=== PATIENT | male | born 1945 | race Caucasian/White ===

== ENCOUNTER 2018-12-10 08:40 | Inpatient (IN) | payer MEDICARE, BC ==
[~2018-12-10] VITALS: Ht 175.3 cm; Wt 89.8 kg
[~2018-12-10 08:40] MED LIST: ACLI400A2 INH; ALBU8.5H8 INH; ALPR0.5T6 PO; AMLO-150 PO; ASPI81TA45 PO; ATOR-2 PO; ATOR40TA78 PO; AZIT250T89 PO; BUDE10.2 PO; BUDE10.22 INH; BUPIVACAINE/PF 0.5% ONE; BUPIVACAINE/PF-EPI 0.5% 1:200K ONE; CALC667T PO; CINA30TA2 PO; CITA40TA12 PO; CLOP75TA PO; ERGO500017 PO; FLUT1BLS PO; FLUT1POW2 PO; FURO40TA6 PO; GABA300C10 PO; GABA600T7 PO; HYDR-3240 PO; INSU100C SQ-INSULIN; INSU100V35 SC; INSU100V5 SQ; INSU100V8 SQ; INSU200I4 SQ; IPRA3AMP30 NEB; IPRA3AMP30 NPPB; KETO120S2 TP; LEVO125T PO; LEVO25TA4 PO; LEVO500T47 PO; LOSA100T14 PO; METH4TAB PO; METH500T7 PO; METO-93 PO; METO25TA35 PO/NG; ONDA4TAB7 PO; OXYB5TAB7 PO; OXYC1TAB8 PO; TAMS0.4C2 PO; TIOT18CA INH; TRIA15OI TP; VENL150T PO; VENL37.511 PO
[2018-12-10] MEDS ORDERED: SODIUM CHLORIDE 0.9% 1,000 ML IV SCH (09:10)
[2018-12-10] MEDS ORDERED: FENTANYL PF 100 MCG/2ML ONE ×2 (11:26→14:33)
[2018-12-10] MEDS ORDERED: EPHEDRINE 50 MG/ML, 1ML ONE (11:35)
[2018-12-10] MEDS ORDERED: ROCURONIUM 10MG/ML,5ML ONE (11:35)
[2018-12-10] MEDS ORDERED: CEFAZOLIN 1,000 MG ONE (11:35)
[2018-12-10] MEDS ORDERED: PROPOFOL 10 MG/ML, 20ML ONE (11:35)
[2018-12-10] MEDS ORDERED: DEXAMETHASONE 4 MG/ML, 1ML ONE (11:35)
[2018-12-10] MEDS ORDERED: ONDANSETRON 2MG/ML, 2ML ONE (11:35)
[2018-12-10] MEDS ORDERED: SUGAMMADEX 200 MG/2 ML IVPush ONE (11:53)
[2018-12-10] MEDS ORDERED: HYDROmorphone 2 MG/ML, 1ML IVPush PRN (12:30)
[2018-12-10] MEDS ORDERED: PROMETHAZINE 25 MG/ML, 1ML IV PRN (12:30)
[2018-12-10] MEDS ORDERED: HALOPERIDOL 5 MG/ML IV PRN (12:30)
[2018-12-10] MEDS ORDERED: LABETALOL 5MG/ML, 20ML IV PRN (12:30)
[2018-12-10] MEDS ORDERED: OXYcodone 5 MG/5 ML ORAL.SOL UDC PO PRN (12:30)
[2018-12-10] MEDS ORDERED: ALBUTEROL SULFATE 2.5 MG/3 ML NPPB PRN ×2 (12:30→16:30)
[2018-12-10 13:03] LABS: 10MIN %DROP IOPTH 24 %; 5MIN %DROP IOPTH 35 %; IOPTH BASELINE 303 pg/mL; SAMPLE 5 %DROP IOPTH 19 %
[2018-12-10] MEDS ORDERED: hydrALAzine 20 MG/ML, 1ML ONE (14:33)
[2018-12-10] MEDS ORDERED: OXYcodone 5 MG/5 ML ORAL.SOL UDC ONE (14:34)
[2018-12-10] MEDS: hydrALAzine 20 MG/ML, 1ML IV PRN ×2 (14:35→15:05)
[2018-12-10] MEDS: FENTANYL PF 100 MCG/2ML IV PRN ×4 (14:40→15:14)
[2018-12-10] MEDS ORDERED: HYDROcodone/APAP 5/325 TABLET PO PRN (16:30)
[2018-12-10] MEDS ORDERED: hydrALAzine 20 MG/ML, 1ML IV PRN (16:30)
[2018-12-10] MEDS ORDERED: ACETAMINOPHEN 325 MG TABLET PO PRN (16:30)
[2018-12-10] MEDS ORDERED: ACETAMINOPHEN 650 MG SUPP PR PRN (16:30)
[2018-12-10] MEDS ORDERED: ONDANSETRON 2MG/ML, 2ML IV PRN (16:30)
[2018-12-10 19:06] VITALS: BP 163/82
[2018-12-10] MEDS: ALBUTEROL/IPRATROPIUM 2.5MG/0.5MG, 3 ML NPPB SCH (20:00)
[2018-12-10] MEDS ORDERED: AMLODIPINE 5 MG TABLET PO SCH (21:00)
[2018-12-10] MEDS ORDERED: ATORVASTATIN 40 MG TABLET PO SCH (21:00)
[2018-12-10] MEDS: SODIUM CHLORIDE FLUSH 10ML SYR IVF SCH (21:00)
[2018-12-10] MEDS ORDERED: LOSARTAN 50MG TABLET PO SCH (21:00)
[2018-12-10] MEDS: BUDESONIDE 0.5 MG/2 ML INHA NPPB SCH (21:00)
[2018-12-10] MEDS: METHOCARBAMOL 500 MG TABLET PO SCH (21:37)
[2018-12-10] MEDS: INSULIN LISPRO 100 UNITS/ML, PEN SS SQ-INSULIN SCH (21:39)
[2018-12-10] MEDS: CALCIUM ACETATE 667 MG CAPSULE PO SCH (21:42)
[2018-12-10 23:56] VITALS: BP 156/72
[2018-12-11 04:05] VITALS: BP 144/82
[2018-12-11 05:40] LABS: ALBUMIN 3.4 g/dL (3.4-5.0); ANION GAP 7 mmol/L (5-15); CALCIUM 8.5 mg/dL (8.5-10.1); CHLORIDE 99 mmol/L (98-107); CREATININE 8.17 mg/dL (0.7-1.3)
[2018-12-11] MEDS ORDERED: LEVOTHYROXINE 25 MCG TABLET PO SCH (06:00)
[2018-12-11] MEDS: ALBUTEROL/IPRATROPIUM 2.5MG/0.5MG, 3 ML NPPB SCH ×4 (06:21→20:00)
[2018-12-11 06:25] LABS: CALCIUM 8.5 mg/dL (8.5-10.1)
[2018-12-11 06:56] VITALS: BP 148/68
[2018-12-11] MEDS: INSULIN LISPRO 100 UNITS/ML, PEN SS SQ-INSULIN SCH ×3 (08:00→16:00)
[2018-12-11] MEDS: BUDESONIDE 0.5 MG/2 ML INHA NPPB SCH ×2 (09:00→21:00)
[2018-12-11] MEDS: CALCIUM ACETATE 667 MG CAPSULE PO SCH ×2 (09:00→16:00)
[2018-12-11] MEDS: SODIUM CHLORIDE FLUSH 10ML SYR IVF SCH (09:00)
[2018-12-11] MEDS ORDERED: VENLAFAXINE 75 MG CAP ER PO SCH (09:00)
[2018-12-11] MEDS: METHOCARBAMOL 500 MG TABLET PO SCH ×2 (09:00→16:00)
[2018-12-11 13:20] VITALS: BP 134/71
[2018-12-11] MEDS ORDERED: HYDR-3240 PO (17:30)
== END 2018-12-11 17:45 | disposition home or self-care (01) | DRG 625 ==
LOC: OUT 08:40 → 4NOR 15:51 → OUT 15:55 → 4NOR 15:55
PROVIDERS: ADMIT Surgery; ATTEND Surgery
PROC: 0GBL0ZX Excision of Right Superior Parathyroid Gland, Open Approach, Diagnostic (ICD-10-PCS; 2018-12-10)
PROC: 0GBH0ZX Excision of Right Thyroid Gland Lobe, Open Approach, Diagnostic (ICD-10-PCS; 2018-12-10)
PROC: 4A11X4G Monitoring of Peripheral Nervous Electrical Activity, Intraoperative, External Approach (ICD-10-PCS; 2018-12-10)
PROC: 0GTQ0ZZ Resection of Multiple Parathyroid Glands, Open Approach (ICD-10-PCS; principal; 2018-12-10 10:45)
PROC: 5A1D70Z Performance of Urinary Filtration, Intermittent, Less than 6 Hours Per Day (ICD-10-PCS; 2018-12-11)
DX: E21.0 Primary hyperparathyroidism (principal); N18.6 End stage renal disease; I12.0 Hypertensive chronic kidney disease with stage 5 chronic kidney disease or end stage renal disease; D35.1 Benign neoplasm of parathyroid gland; D64.9 Anemia, unspecified; E03.9 Hypothyroidism, unspecified; E11.22 Type 2 diabetes mellitus with diabetic chronic kidney disease; I48.0 Paroxysmal atrial fibrillation; M54.9 Dorsalgia, unspecified; G89.29 Other chronic pain; M19.90 Unspecified osteoarthritis, unspecified site; E78.5 Hyperlipidemia, unspecified; I25.10 Atherosclerotic heart disease of native coronary artery without angina pectoris; J44.9 Chronic obstructive pulmonary disease, unspecified; N25.0 Renal osteodystrophy; Z85.528 Personal history of other malignant neoplasm of kidney; Z86.14 Personal history of Methicillin resistant Staphylococcus aureus infection; Z87.19 Personal history of other diseases of the digestive system; Z87.891 Personal history of nicotine dependence; Z90.5 Acquired absence of kidney; Z99.2 Dependence on renal dialysis; Z87.01 Personal history of pneumonia (recurrent); Z95.1 Presence of aortocoronary bypass graft; Z88.2 Allergy status to sulfonamides; Z88.8 Allergy status to other drugs, medicaments and biological substances; Z88.6 Allergy status to analgesic agent; Z91.013 Allergy to seafood; Z79.899 Other long term (current) drug therapy
CPT/HCPCS: 36415; 80047; 80048; 82040; 82310; 82962; 83970; 86705; 86706; 87340; 88305; 88331; 94640; G0378; J0690; J1100; J2405; J2704; J3010; J3490; J7620; C1760; J0360; J1815; J7030

== ENCOUNTER 2019-03-13 08:00 | Outpatient (CLI) | payer MEDICARE, BC ==
[~2019-03-13] VITALS: Ht 172.7 cm; Wt 85.9 kg
[~2019-03-13 08:00] MED LIST changes: -AMLO2.5T5 PO; -AZIT250T PO; -LEVO50TA5 PO; -METO50TA82 PO
[2019-03-13] MEDS ORDERED: LEVO50TA5 PO (12:50)
[2019-03-13] MEDS ORDERED: AZIT250T PO (12:50)
[2019-03-13 13:00] LABS: INTERNATIONAL NORMALIZED RATIO 1.06 (0.93-1.1); PROTHROMBIN TIME 11.1 Seconds (9.6-11.5)
[2019-03-13 13:03] LABS: ALBUMIN 3.8 g/dL (3.4-5.0); ANION GAP 9 mmol/L (5-15); CALCIUM 8.8 mg/dL (8.5-10.1); CHLORIDE 99 mmol/L (98-107)
[2019-03-13 13:05] LABS: BASOPHILS # (AUTO) 0.02 x10^3/uL (0-0.1); BASOPHILS % (AUTO) 0 % (0-1); EOSINOPHILS # (AUTO) 0.03 x10^3/uL (0-0.4); EOSINOPHILS % (AUTO) 1 % (1-7); LYMPHOCYTES # (AUTO) 0.62 x10^3/uL (1-3.4); LYMPHOCYTES % (AUTO) 13 % (22-44); MD NO; MEAN CORPUSCULAR HEMOGLOBIN 32.1 pg (27.5-34.5); MEAN CORPUSCULAR HGB CONC 32.9 g/dL (33.2-36.2); MEAN CORPUSCULAR VOLUME 97.4 fL (81-97); MONOCYTES # (AUTO) 0.36 x10^3/uL (0.2-0.8); MONOCYTES % (AUTO) 7 % (2-9); NEUTROPHILS # (AUTO) 3.84 x10^3/uL (1.8-6.8); NEUTROPHILS % (AUTO) 79 % (42-75); PLATELET COUNT 140 x10^3/uL (130-400); RED BLOOD COUNT 3.57 x10^6/uL (4.38-5.82); RED CELL DISTRIBUTION WIDTH 14.7 % (9.4-14.8)
[2019-03-13 13:06] LABS: ALANINE AMINOTRANSFERASE 16 U/L (12-78); ALKALINE PHOSPHATASE 55 U/L (45-117); BILIRUBIN,TOTAL 0.8 mg/dL (0.2-1.0); CREATININE 5.84 mg/dL (0.7-1.3); TOTAL PROTEIN 7.1 g/dL (6.4-8.2)
[2019-03-15] MEDS ORDERED: FENTANYL PF 100 MCG/2ML ONE (11:39)
[2019-03-15] MEDS ORDERED: ROCURONIUM 10MG/ML,5ML ONE (13:15)
[2019-03-15] MEDS ORDERED: CEFAZOLIN 1,000 MG ONE (13:15)
[2019-03-15] MEDS ORDERED: SUCCINYLCHOLINE 20 MG/ML, 10ML ONE (13:15)
[2019-03-15] MEDS ORDERED: GLYCOPYRROLATE 0.2MG/1ML, 5ML ONE (13:15)
[2019-03-15] MEDS ORDERED: NEOSTIGMINE 1 MG/ML, 10ML ONE (13:15)
[2019-03-15] MEDS ORDERED: DEXAMETHASONE 4 MG/ML, 1ML ONE (13:15)
[2019-03-15] MEDS ORDERED: ONDANSETRON 2MG/ML, 2ML ONE (13:15)
[2019-03-15] MEDS ORDERED: PROPOFOL 10 MG/ML, 20ML ONE (13:15)
== END 2019-03-13 23:59 | disposition home or self-care (01) ==
LOC: STAR 08:00 → EDSTATUS 03-15 12:00
PROVIDERS: ATTEND Internal Medicine
DX: R91.1 Solitary pulmonary nodule (principal); Z53.8 Procedure and treatment not carried out for other reasons; J44.9 Chronic obstructive pulmonary disease, unspecified; E11.22 Type 2 diabetes mellitus with diabetic chronic kidney disease; I12.0 Hypertensive chronic kidney disease with stage 5 chronic kidney disease or end stage renal disease; N18.5 Chronic kidney disease, stage 5; Z99.81 Dependence on supplemental oxygen; Z79.82 Long term (current) use of aspirin; Z79.890 Hormone replacement therapy; Z79.4 Long term (current) use of insulin; Z79.899 Other long term (current) drug therapy; Z88.8 Allergy status to other drugs, medicaments and biological substances; Z91.013 Allergy to seafood
CPT/HCPCS: 36415; 76000; 80053; 85025; 85610; 85730; 93005; J0690; J1100; J2405; J2704; J2710; J3010; J0330

== ENCOUNTER → 2019-03-13 | Outpatient (CLI) | payer MEDICARE, BC ==
[~2019-03-13] MED LIST changes: +AMLO2.5T5 PO; +AZIT250T PO; -BUPIVACAINE/PF 0.5% ONE; -BUPIVACAINE/PF-EPI 0.5% 1:200K ONE; +LEVO50TA5 PO; +METO50TA82 PO
== END | disposition home or self-care (01) ==
LOC: CFH 14:30
PROVIDERS: ATTEND Nurse Practitioner
DX: R91.1 Solitary pulmonary nodule (principal); J98.11 Atelectasis; J90 Pleural effusion, not elsewhere classified; I51.7 Cardiomegaly
CPT/HCPCS: 71250

== ENCOUNTER 2019-03-14 05:39 | Inpatient (IN) | payer MEDICARE, BC ==
[~2019-03-14] VITALS: Ht 172.7 cm; Wt 90.1 kg
[~2019-03-14 05:39] MED LIST changes: +AZIT250T PO; +LEVO50TA5 PO
[2019-03-14] MEDS ORDERED: SODIUM CHLORIDE FLUSH 10ML SYR IVF ONE (06:00)
[2019-03-14] MEDS ORDERED: DEXTROSE 50%, 50ML SYRINGE IVPush ONE (06:00)
[2019-03-14 06:45] LABS: BASOPHILS # (AUTO) 0.02 x10^3/uL (0-0.1); BASOPHILS % (AUTO) 0 % (0-1); EOSINOPHILS # (AUTO) 0.04 x10^3/uL (0-0.4); EOSINOPHILS % (AUTO) 1 % (1-7); LYMPHOCYTES # (AUTO) 0.44 x10^3/uL (1-3.4); LYMPHOCYTES % (AUTO) 6 % (22-44); MD NO; MEAN CORPUSCULAR HEMOGLOBIN 32.6 pg (27.5-34.5); MEAN CORPUSCULAR HGB CONC 33.3 g/dL (33.2-36.2); MEAN PLATELET VOLUME 6.9 fL (7.4-10.4); MONOCYTES # (AUTO) 0.31 x10^3/uL (0.2-0.8); MONOCYTES % (AUTO) 4 % (2-9); NEUTROPHILS # (AUTO) 6.97 x10^3/uL (1.8-6.8); NEUTROPHILS % (AUTO) 90 % (42-75); PLATELET COUNT 116 x10^3/uL (130-400); RED BLOOD COUNT 3.24 x10^6/uL (4.38-5.82); RED CELL DISTRIBUTION WIDTH 14.4 % (9.4-14.8)
[2019-03-14 06:54] LABS: INTERNATIONAL NORMALIZED RATIO 1.06 (0.93-1.1); PROTHROMBIN TIME 11.1 Seconds (9.6-11.5)
[2019-03-14 06:57] LABS: ALANINE AMINOTRANSFERASE 16 U/L (12-78); ALBUMIN 3.5 g/dL (3.4-5.0); ANION GAP 10 mmol/L (5-15); CALCIUM 8.2 mg/dL (8.5-10.1); CHLORIDE 103 mmol/L (98-107); CREATININE 6.95 mg/dL (0.7-1.3)
[2019-03-14 06:59] LABS: ALKALINE PHOSPHATASE 62 U/L (45-117); BILIRUBIN,TOTAL 0.4 mg/dL (0.2-1.0); TOTAL PROTEIN 6.7 g/dL (6.4-8.2)
--- NOTE | 2019-03-14 07:05 | NUR ---
report recieved from SALMA Escudero. Pt resting on gurney. pain is 0/10. breakfast tray ordered. BG 102. pt to be admited. reports no needs at this time.
--- NOTE | 2019-03-14 08:43 | NUR ---
PT resting on gurney. pt recieved breakfast tray and ate 100% of meal. pt reports no pain. BG 53. no acute distress noted.
--- NOTE | 2019-03-14 08:46 | NUR ---
pt given juice and crackers to increase BG. will recheck BG in 20-30 minutes.
--- NOTE | 2019-03-14 09:32 | NUR ---
PT'S BG still low-49. pt given 2 more juices and crackers. ER notified.
[2019-03-14] MEDS ORDERED: DEXTROSE 10% 500 ML IV SCH (10:00)
--- NOTE | 2019-03-14 10:00 | NUR ---
central supply notified for request for d10w 500ml
--- NOTE | 2019-03-14 11:17 | NUR ---
REPORT GIVEN TO SALMA CHENG ON TELE
[2019-03-14] MEDS ORDERED: ACETAMINOPHEN 325 MG TABLET PO PRN (12:00)
[2019-03-14] MEDS ORDERED: ONDANSETRON 2MG/ML, 2ML IVPush PRN (12:00)
[2019-03-14] MEDS ORDERED: hydrALAzine 20 MG/ML, 1ML IVPush PRN (12:00)
[2019-03-14] MEDS ORDERED: morphine SULFATE 10 MG/ML, 1ML IVPush PRN (12:00)
[2019-03-14 12:45] VITALS: BP 117/72
[2019-03-14] MEDS: HEPARIN 5,000 UNITS/ML, 1ML SQ SCH ×2 (14:30→22:30)
[2019-03-14 15:39] VITALS: BP 117/72
[2019-03-14] MEDS ORDERED: EPINEPHRINE SYRINGE 0.1 MG/ML, 10ML ONE (15:50)
[2019-03-14 18:46] VITALS: BP 120/76
[2019-03-14] MEDS: LOSARTAN 50MG TABLET PO SCH (20:39)
[2019-03-14] MEDS: ATORVASTATIN 40 MG TABLET PO SCH (20:53)
[2019-03-14] MEDS: AMLODIPINE 5 MG TABLET PO SCH (20:53)
[2019-03-14] MEDS ORDERED: LOSARTAN 50MG TABLET PO SCH (21:00)
[2019-03-15 02:00] VITALS: BP 97/58
[2019-03-15] MEDS ORDERED: DEXTROSE 4 GM TAB.CHEW PO PRN (02:00)
[2019-03-15] MEDS ORDERED: GLUCAGON 1 MG IM PRN (02:00)
[2019-03-15] MEDS ORDERED: DEXTROSE 50%, 50ML SYRINGE IVPush PRN (02:00)
[2019-03-15] MEDS: DEXTROSE 10% 500 ML IV SCH ×4 (03:00→23:00)
[2019-03-15 06:06] LABS: BASOPHILS # (AUTO) 0.03 x10^3/uL (0-0.1); BASOPHILS % (AUTO) 1 % (0-1); EOSINOPHILS # (AUTO) 0.11 x10^3/uL (0-0.4); EOSINOPHILS % (AUTO) 3 % (1-7); LYMPHOCYTES # (AUTO) 0.77 x10^3/uL (1-3.4); LYMPHOCYTES % (AUTO) 18 % (22-44); MD NO; MEAN CORPUSCULAR HEMOGLOBIN 32.5 pg (27.5-34.5); MEAN CORPUSCULAR HGB CONC 33.2 g/dL (33.2-36.2); MONOCYTES % (AUTO) 10 % (2-9); NEUTROPHILS # (AUTO) 2.87 x10^3/uL (1.8-6.8); NEUTROPHILS % (AUTO) 69 % (42-75); PLATELET COUNT 127 x10^3/uL (130-400); RED BLOOD COUNT 3.47 x10^6/uL (4.38-5.82); RED CELL DISTRIBUTION WIDTH 14.3 % (9.4-14.8)
[2019-03-15 06:12] LABS: CHLORIDE 103 mmol/L (98-107)
[2019-03-15] MEDS: HEPARIN 5,000 UNITS/ML, 1ML SQ SCH ×3 (06:14→21:38)
[2019-03-15 06:20] LABS: ALANINE AMINOTRANSFERASE 13 U/L (12-78); ALBUMIN 3.5 g/dL (3.4-5.0); ALKALINE PHOSPHATASE 47 U/L (45-117); ANION GAP 6 mmol/L (5-15); BILIRUBIN,TOTAL 0.7 mg/dL (0.2-1.0); CALCIUM 8.5 mg/dL (8.5-10.1); CREATININE 4.94 mg/dL (0.7-1.3); TOTAL PROTEIN 6.8 g/dL (6.4-8.2)
[2019-03-15 08:30] VITALS: BP 146/91
[2019-03-15] MEDS: SODIUM CHLORIDE FLUSH 10ML SYR IVF SCH ×2 (09:00→21:38)
[2019-03-15] MEDS: LEVOTHYROXINE 50 MCG TABLET PO SCH (09:30)
[2019-03-15] MEDS: VENLAFAXINE 75 MG CAP ER PO SCH (09:30)
[2019-03-15] MEDS ORDERED: DEXTROSE 10% 500 ML IV SCH (10:00)
[2019-03-15] MEDS ORDERED: PROMETHAZINE 25 MG/ML, 1ML IV PRN (12:00)
[2019-03-15] MEDS ORDERED: DIPHENHYDRAMINE 50 MG/ML, 1ML IVPush PRN (12:00)
[2019-03-15] MEDS ORDERED: MEPERIDINE/PF 25MG/0.5ML IVPush PRN (12:00)
[2019-03-15] MEDS ORDERED: hydrALAzine 20 MG/ML, 1ML IV PRN (12:00)
[2019-03-15] MEDS ORDERED: HALOPERIDOL 5 MG/ML IV PRN (12:00)
[2019-03-15] MEDS ORDERED: LABETALOL 5MG/ML, 20ML IV PRN (12:00)
[2019-03-15] MEDS ORDERED: FENTANYL PF 100 MCG/2ML IV PRN (12:00)
[2019-03-15] MEDS ORDERED: PROCHLORPERAZINE 5 MG/ML, 2ML IV PRN (12:00)
[2019-03-15] MEDS ORDERED: METOPROLOL 1 MG/ML, 5ML IV PRN (12:00)
[2019-03-15] MEDS ORDERED: PHENYLEPHRINE 10 MG/ML ONE (12:05)
[2019-03-15] MEDS ORDERED: FENTANYL PF 100 MCG/2ML ONE (12:05)
[2019-03-15] MEDS ORDERED: ESMOLOL 100 MG/10 ML ONE (12:05)
[2019-03-15] MEDS ORDERED: PROPOFOL 10 MG/ML, 20ML ONE (12:05)
[2019-03-15] MEDS ORDERED: SUGAMMADEX 200 MG/2 ML IVPush ONE (12:05)
[2019-03-15] MEDS ORDERED: EPHEDRINE 50 MG/ML, 1ML ONE (12:05)
[2019-03-15] MEDS ORDERED: ONDANSETRON 2MG/ML, 2ML ONE (12:05)
[2019-03-15] MEDS ORDERED: DEXAMETHASONE 4 MG/ML, 1ML ONE (12:05)
[2019-03-15 15:00] VITALS: BP 121/80
[2019-03-15 18:49] VITALS: BP 117/71
[2019-03-15] MEDS: ATORVASTATIN 40 MG TABLET PO SCH (21:38)
[2019-03-15] MEDS: AMLODIPINE 5 MG TABLET PO SCH (21:39)
[2019-03-15] MEDS: LOSARTAN 50MG TABLET PO SCH ×2 (21:39→21:42)
[2019-03-15 21:43] VITALS: BP 125/76
[2019-03-16 00:39] VITALS: BP 124/82
[2019-03-16 04:03] VITALS: BP 127/85
[2019-03-16] MEDS: DEXTROSE 10% 500 ML IV SCH (05:15)
[2019-03-16 05:44] LABS: BASOPHILS # (AUTO) 0.02 x10^3/uL (0-0.1); BASOPHILS % (AUTO) 0 % (0-1); EOSINOPHILS % (AUTO) 0 % (1-7); LYMPHOCYTES # (AUTO) 0.54 x10^3/uL (1-3.4); LYMPHOCYTES % (AUTO) 10 % (22-44); MD NO; MEAN CORPUSCULAR HEMOGLOBIN 32.4 pg (27.5-34.5); MEAN CORPUSCULAR HGB CONC 32.2 g/dL (33.2-36.2); MEAN CORPUSCULAR VOLUME 100.4 fL (81-97); MEAN PLATELET VOLUME 7.3 fL (7.4-10.4); MONOCYTES # (AUTO) 0.43 x10^3/uL (0.2-0.8); MONOCYTES % (AUTO) 8 % (2-9); NEUTROPHILS # (AUTO) 4.47 x10^3/uL (1.8-6.8); NEUTROPHILS % (AUTO) 82 % (42-75); PLATELET COUNT 128 x10^3/uL (130-400); RED BLOOD COUNT 3.32 x10^6/uL (4.38-5.82); RED CELL DISTRIBUTION WIDTH 14.5 % (9.4-14.8)
[2019-03-16 05:53] LABS: ANION GAP 7 mmol/L (5-15); CALCIUM 8.3 mg/dL (8.5-10.1); CHLORIDE 99 mmol/L (98-107); CREATININE 6.84 mg/dL (0.7-1.3)
[2019-03-16] MEDS: HEPARIN 5,000 UNITS/ML, 1ML SQ SCH ×3 (05:57→21:35)
[2019-03-16] MEDS: METOPROLOL TARTRATE 50 MG TABLET PO SCH ×2 (07:00→16:41)
[2019-03-16] MEDS ORDERED: METOPROLOL TARTRATE 25 MG TABLET ONE (07:03)
[2019-03-16] MEDS ORDERED: DIGOXIN 0.25 MG/ML, 2ML ONE (07:03)
[2019-03-16] MEDS ORDERED: DIGOXIN 0.25 MG/ML, 2ML IVPush ONE (07:30)
[2019-03-16 07:36] VITALS: BP 112/73
[2019-03-16] MEDS: LEVOTHYROXINE 50 MCG TABLET PO SCH (08:09)
[2019-03-16] MEDS: VENLAFAXINE 75 MG CAP ER PO SCH (08:09)
[2019-03-16] MEDS: SODIUM CHLORIDE FLUSH 10ML SYR IVF SCH ×2 (08:09→21:36)
[2019-03-16] MEDS: ASPIRIN 81 MG TABLET EC PO SCH (12:59)
[2019-03-16] MEDS: CLOPIDOGREL 75 MG TABLET PO SCH (12:59)
[2019-03-16 14:00] VITALS: BP 102/51
[2019-03-16 18:42] VITALS: BP 98/60
[2019-03-16] MEDS ORDERED: AMLODIPINE 2.5 MG TABLET PO SCH (21:00)
[2019-03-16] MEDS ORDERED: INSULIN GLARGINE 100 UNITS/ML, PEN SQ-INSULIN SCH (21:00)
[2019-03-16] MEDS: ATORVASTATIN 40 MG TABLET PO SCH (21:35)
[2019-03-17 01:11] VITALS: BP 108/57
[2019-03-17] MEDS: METOPROLOL TARTRATE 50 MG TABLET PO SCH (06:22)
[2019-03-17] MEDS: HEPARIN 5,000 UNITS/ML, 1ML SQ SCH (06:23)
[2019-03-17] MEDS: ASPIRIN 81 MG TABLET EC PO SCH (06:23)
[2019-03-17 07:55] VITALS: BP 112/79
[2019-03-17] MEDS: SODIUM CHLORIDE FLUSH 10ML SYR IVF SCH (08:39)
[2019-03-17] MEDS: VENLAFAXINE 75 MG CAP ER PO SCH (08:39)
[2019-03-17] MEDS: CLOPIDOGREL 75 MG TABLET PO SCH (08:39)
[2019-03-17] MEDS: LEVOTHYROXINE 50 MCG TABLET PO SCH (08:39)
[2019-03-17 11:42] LABS: ANION GAP 8 mmol/L (5-15); CALCIUM 8.3 mg/dL (8.5-10.1); CHLORIDE 96 mmol/L (98-107); CREATININE 6.12 mg/dL (0.7-1.3)
[2019-03-17] MEDS ORDERED: METO50TA82 PO (12:28)
[2019-03-17] MEDS ORDERED: AMLO2.5T5 PO (12:28)
[2019-03-17 13:19] VITALS: BP 101/66
== END 2019-03-17 14:00 | disposition home or self-care (01) | DRG 637 ==
LOC: ED 06:55 → EDIP 07:55 → 4WST 11:19
PROVIDERS: ADMIT Internal Medicine; ATTEND Internal Medicine
PROC: 5A1D70Z Performance of Urinary Filtration, Intermittent, Less than 6 Hours Per Day (ICD-10-PCS; principal; 2019-03-14)
PROC: 0B9D8ZX Drainage of Right Middle Lung Lobe, Via Natural or Artificial Opening Endoscopic, Diagnostic (ICD-10-PCS; 2019-03-15)
PROC: 0BD38ZX Extraction of Right Main Bronchus, Via Natural or Artificial Opening Endoscopic, Diagnostic (ICD-10-PCS; 2019-03-15)
PROC: 0BBD8ZZ Excision of Right Middle Lung Lobe, Via Natural or Artificial Opening Endoscopic (ICD-10-PCS; 2019-03-15)
PROC: 0BDD8ZX Extraction of Right Middle Lung Lobe, Via Natural or Artificial Opening Endoscopic, Diagnostic (ICD-10-PCS; 2019-03-15)
PROC: 5A1D70Z Performance of Urinary Filtration, Intermittent, Less than 6 Hours Per Day (ICD-10-PCS; 2019-03-16)
DX: E11.641 Type 2 diabetes mellitus with hypoglycemia with coma (principal); G93.41 Metabolic encephalopathy; N18.6 End stage renal disease; I13.2 Hypertensive heart and chronic kidney disease with heart failure and with stage 5 chronic kidney disease, or end stage renal disease; I50.32 Chronic diastolic (congestive) heart failure; J96.10 Chronic respiratory failure, unspecified whether with hypoxia or hypercapnia; E03.9 Hypothyroidism, unspecified; E11.22 Type 2 diabetes mellitus with diabetic chronic kidney disease; E11.649 Type 2 diabetes mellitus with hypoglycemia without coma; G47.33 Obstructive sleep apnea (adult) (pediatric); E55.9 Vitamin D deficiency, unspecified; I25.10 Atherosclerotic heart disease of native coronary artery without angina pectoris; I48.2 Chronic atrial fibrillation; Z66 Do not resuscitate; F32.9 Major depressive disorder, single episode, unspecified; J44.9 Chronic obstructive pulmonary disease, unspecified; E87.5 Hyperkalemia; N28.89 Other specified disorders of kidney and ureter; N40.0 Benign prostatic hyperplasia without lower urinary tract symptoms; Z85.528 Personal history of other malignant neoplasm of kidney; Z86.14 Personal history of Methicillin resistant Staphylococcus aureus infection; Z86.19 Personal history of other infectious and parasitic diseases; Z87.19 Personal history of other diseases of the digestive system; Z87.891 Personal history of nicotine dependence; Z90.5 Acquired absence of kidney; Z95.1 Presence of aortocoronary bypass graft; Z99.2 Dependence on renal dialysis; Z99.81 Dependence on supplemental oxygen; Z95.9 Presence of cardiac and vascular implant and graft, unspecified; Z88.1 Allergy status to other antibiotic agents; Z88.5 Allergy status to narcotic agent; Z91.013 Allergy to seafood; Z79.84 Long term (current) use of oral hypoglycemic drugs
CPT/HCPCS: 31624; 31629; 36415; 71045; 76000; 80048; 80053; 82306; 82962; 83735; 84100; 85025; 85610; 86705; 86706; 87340; 88112; 88172; 88173; 88177; 88305; 93005; 96365; 96376; G0378; J0690; J1100; J1644; J2405; J2704; J2710; J3010; J0330; J1160; J1815; J2370

== ENCOUNTER 2019-04-03 05:55 | Day surgery (SDC) | payer MEDICARE, BC ==
[~2019-04-03] VITALS: Ht 172.7 cm; Wt 86.0 kg
[~2019-04-03 05:55] MED LIST changes: +AMLO2.5T5 PO; +METO50TA82 PO
[2019-04-03 06:58] VITALS: BP 111/69
[2019-04-03] MEDS ORDERED: LEVO75TA5 PO (07:06)
[2019-04-03] MEDS ORDERED: AZIT250T PO (07:06)
[2019-04-03] MEDS ORDERED: AMLO2.5T5 PO (07:06)
[2019-04-03] MEDS ORDERED: METO50TA82 PO (07:06)
[2019-04-03] MEDS ORDERED: SODIUM CHLORIDE 0.9% 1,000 ML IV SCH (07:30)
[2019-04-03] MEDS ORDERED: MIDAZOLAM 1 MG/ML, 5ML ONE (07:45)
[2019-04-03] MEDS ORDERED: NALOXONE 1 MG/ML, 2ML ONE (07:45)
[2019-04-03] MEDS ORDERED: FENTANYL PF 100 MCG/2ML ONE ×2 (07:45)
[2019-04-03] MEDS ORDERED: FLUMAZENIL 0.1 MG/1 ML, 5ML ONE (07:45)
== END 2019-04-03 13:37 | disposition home or self-care (01) ==
LOC: OUT 05:55
PROVIDERS: ATTEND Internal Medicine
DX: J98.4 Other disorders of lung (principal); I12.0 Hypertensive chronic kidney disease with stage 5 chronic kidney disease or end stage renal disease; E11.22 Type 2 diabetes mellitus with diabetic chronic kidney disease; N18.6 End stage renal disease; J44.9 Chronic obstructive pulmonary disease, unspecified; Z95.1 Presence of aortocoronary bypass graft; Z79.82 Long term (current) use of aspirin; Z88.8 Allergy status to other drugs, medicaments and biological substances; Z88.6 Allergy status to analgesic agent; Z88.1 Allergy status to other antibiotic agents; Z91.013 Allergy to seafood; Z79.84 Long term (current) use of oral hypoglycemic drugs
CPT/HCPCS: 32405; 71045; 77012; 88305; 99156; 99157; J2250; J3010; J7030; J2310

== ENCOUNTER → 2019-10-11 | Outpatient (CLI) | payer MEDICARE, BC ==
[~2019-10-11] MED LIST changes: -ACLI400A2 INH; +ACLI400A3 INH; -CALC667T PO; +CALC667T4 PO; +LEVO75TA5 PO; +OXYB5TAB10 PO; -OXYB5TAB7 PO
== END | disposition home or self-care (01) ==
LOC: PETCFH 11:06
PROVIDERS: ATTEND Nurse Practitioner
DX: J90 Pleural effusion, not elsewhere classified (principal); J98.11 Atelectasis; I51.7 Cardiomegaly; N26.1 Atrophy of kidney (terminal); N28.9 Disorder of kidney and ureter, unspecified; R91.1 Solitary pulmonary nodule; Z95.1 Presence of aortocoronary bypass graft
CPT/HCPCS: 78815; A9552

== ENCOUNTER 2019-12-20 07:52 | Outpatient (CLI) | payer MEDICARE, BC ==
[~2019-12-20 07:52] MED LIST changes: +DILT360T PO; +GUAI5SYR PO
== END 2019-12-20 23:59 | disposition home or self-care (01) ==
LOC: ROC 07:52
PROVIDERS: ATTEND Radiology Radiation Oncology
DX: Z02.9 Encounter for administrative examinations, unspecified (principal)

== ENCOUNTER 2019-12-27 13:12 | Outpatient (CLI) | payer MEDICARE, BC | END 2019-12-27 23:59 | disposition home or self-care (01) | LOC: ROC 13:12 | PROVIDERS: ATTEND Radiology Radiation Oncology | DX: C34.2 Malignant neoplasm of middle lobe, bronchus or lung (principal); D38.1 Neoplasm of uncertain behavior of trachea, bronchus and lung; Z99.81 Dependence on supplemental oxygen; Z79.82 Long term (current) use of aspirin; Z79.899 Other long term (current) drug therapy | CPT/HCPCS: G0463 ==

== ENCOUNTER 2020-04-14 12:20 | Outpatient (CLI) | payer MEDICARE, BC ==
[~2020-04-14 12:20] MED LIST changes: -KETO120S2 TP; +KETO120S4 TP
== END 2020-04-14 23:59 | disposition home or self-care (01) ==
LOC: CFH 12:20
PROVIDERS: ATTEND Radiology Radiation Oncology
DX: C34.2 Malignant neoplasm of middle lobe, bronchus or lung (principal); J90 Pleural effusion, not elsewhere classified; R91.1 Solitary pulmonary nodule; J98.4 Other disorders of lung
CPT/HCPCS: 71250

== ENCOUNTER 2020-04-16 09:38 | Outpatient (CLI) | payer MEDICARE, BC | END 2020-04-16 23:59 | disposition home or self-care (01) | LOC: ROC 09:38 | PROVIDERS: ATTEND Radiology Radiation Oncology | DX: Z08 Encounter for follow-up examination after completed treatment for malignant neoplasm (principal); C34.2 Malignant neoplasm of middle lobe, bronchus or lung | CPT/HCPCS: G0463 ==

== ENCOUNTER → 2020-08-11 | Outpatient (CLI) | payer MEDICARE, BC | END | disposition home or self-care (01) | LOC: CFH 10:18 | PROVIDERS: ATTEND Radiology Radiation Oncology | DX: C34.2 Malignant neoplasm of middle lobe, bronchus or lung (principal); I25.10 Atherosclerotic heart disease of native coronary artery without angina pectoris; J90 Pleural effusion, not elsewhere classified; R91.1 Solitary pulmonary nodule; J98.4 Other disorders of lung; R59.0 Localized enlarged lymph nodes | CPT/HCPCS: 71250 ==